=== PATIENT | female | born 1995 | race African-American/Black ===

== ENCOUNTER 2017-01-23 15:16 | Emergency (ER) | payer MEDICAID ==
[~2017-01-23] VITALS: Ht 160 cm; Wt 52.0 kg
[~2017-01-23 15:16] MED LIST: PRED-503 PO
[2017-01-23 15:18] VITALS: BP 120/76; PULSE 16; PULSE 94; RESP 15; TEMP 98.1; O2SAT 98
[2017-01-23] MEDS ORDERED: AMOX875T PO (18:24)
--- NOTE | 2017-01-23 18:24 | PD ---
HPI Chief Complaint: ENT Complaint Time Seen by Provider: 18:21 Travel History International Travel<30 days: No Contact w/Intl Traveler<30days: No Traveled to known affect area: No History of Present Illness HPI Patient comes in complaining of sore throat ongoing for 3 days. Patient describes pain as scratchy burning sensation in her throat that radiates to her ears when she swallows. Patient is been taking [id number] cold and flu medication with minimal relief of her symptoms. Denies any fevers, neck pain, headache, nausea, vomiting, chest pain, shortness of breath, abdominal pain, or diarrhea. [facility] Past Medical History Medical History: Denies Significant Hx ?: Not LMP: 01/06/17 Social History Alcohol Use: No Tobacco Use: No Substance Use: No Allergies-Medications (Allergen,Severity, Reaction): Coded Allergies: No Known Allergies (Unverified , 01/23/17) Reported Meds & Prescriptions Reported Meds & Active Scripts Active Amoxicillin 875 Mg Tab 875 Mg PO BID 10 Days Review of Systems Except as stated in HPI: all other systems reviewed are Neg Physical Exam Narrative GENERAL: Well-developed, well nourished, in no acute distress, and non-ill appearing. SKIN: Warm and dry. HEAD: Atraumatic. Normocephalic. EYES: Pupils equal and round. EOMI. No scleral icterus. No injection or drainage. ENT: No nasal bleeding or discharge. Mucous membranes pink and moist. Tympanic membranes pearly huang bilaterally. Posterior pharynx erythematous with exudate. Uvula is midline. Patient is able swallow saliva speaking in full sentences. NECK: Trachea midline. Cervical lymphadenopathy noted. Supple. No nuclear rigidity. CARDIOVASCULAR: Regular rate and rhythm. No murmur appreciated. RESPIRATORY: No accessory muscle use. No respiratory distress. Clear to auscultation. Breath sounds equal bilaterally. MUSCULOSKELETAL: No obvious deformities. No clubbing. No cyanosis. No edema. Full range of motion. NEUROLOGICAL: Awake and alert. No obvious cranial nerve deficits. Motor grossly within normal limits. Normal speech. PSYCHIATRIC: Appropriate mood and affect; insight and judgment normal. Data Data Last Documented VS Vital Signs Date Time Temp Pulse Resp B/P Pulse Ox O2 Delivery O2 Flow Rate FiO2 01/23/17 15:18 98.1 94 15 120/76 98 MDM Medical Decision Making Medical Screen Exam Complete: Yes Emergency Medical Condition: Yes Differential Diagnosis Strep pharyngitis, viral pharyngitis, upper respiratory infection, other Narrative Course Patient looks great, non-ill appearing. The patient is tolerating fluids and is well hydrated. Appears pharyngitis possibly Strep. No clinical evidence by history or evaluation to suspect meningitis and/or sepsis. There was no evidence to suggest peritonsillar abscess or retropharyngeal abscess. I discussed with the patient, diagnosis, plan of care and to follow up with the patients primary physician. The patient was given antibiotics. The patient was instructed to return if the worsens in anyway, especially if not tolerating fluids, increased pain or swelling, difficulty swallowing or breathing, or as needed. The patient agreed with plan. Patient in no obvious distress upon re-evaluation. Patient was asked if they wanted to speak to my attending, which the patient did not wish to do at this time. Any questions/concerns in reference to patient diagnosis/condition discussed and clarified prior to patient's discharge. Reinforced sheer importance of close follow up with patient's primary physician or primary care clinic. Instructed patient to return to ED immediately, if symptoms return/ worsen. Pt showed understanding of above instructions. Further instructions and recommendations were detailed in discharge paperwork. Pt ambulated without difficulty out of ED at discharge. Diagnosis Primary Impression: Pharyngitis Qualified Code: J02.9 - Pharyngitis, unspecified etiology Patient Instructions: General Instructions, Pharyngitis (ED), Strep Throat (ED) Additional Instructions: Follow-up with your primary care physician next week for reevaluation. Take all medication as prescribed. Use [id number] Tylenol and/or ibuprofen as needed for pain and/or fevers. Follow instructions on the packaging. Drink plenty of non-caffeinated and nonalcoholic fluids. Return to the emergency department if symptoms get worse. Med/Other Pt SpecificInfo: Prescription(s) given Scripts Amoxicillin 875 Mg Ded093 Mg PO BID 10 Days Ref 0 Prov:Eriberto Flanagan MD 01/23/17 Disposition: 01 DISCHARGE HOME Condition: Stable Kev Doran Jan 23, 2017 18:24
== END 2017-01-23 18:38 | disposition home or self-care (01) ==
LOC: NEPB 15:16
DX: J02.9 Acute pharyngitis, unspecified (principal)
CPT/HCPCS: 99283

== ENCOUNTER 2017-02-08 19:24 | Emergency (ER) | payer MEDICAID ==
[~2017-02-08] VITALS: Ht 160 cm; Wt 52.0 kg
[~2017-02-08 19:24] MED LIST changes: +AMOX875T PO; -PRED-503 PO
[2017-02-08 19:30] VITALS: BP 114/74; PULSE 89; RESP 16; TEMP 98.2; O2SAT 100
== END 2017-02-08 19:50 | disposition left against medical advice (07) ==
LOC: NETRI 19:24
DX: Z53.21 Procedure and treatment not carried out due to patient leaving prior to being seen by health care provider (principal)
CPT/HCPCS: 99281

== ENCOUNTER 2017-03-19 02:50 | Emergency (ER) | payer MEDICAID ==
[~2017-03-19] VITALS: Ht 160 cm; Wt 52.0 kg
[2017-03-19 02:51] VITALS: BP 122/65; PULSE 111; RESP 18; TEMP 98.8; O2SAT 100
--- NOTE | 2017-03-19 03:28 | PD ---
HPI Chief Complaint: Injury Time Seen by Provider: 03:15 Travel History International Travel<30 days: No Contact w/Intl Traveler<30days: No Traveled to known affect area: No History of Present Illness HPI The patient is a 21-year-old [place] female who presents to the emergency department for right ankle pain. The patient states she was doing cheerleading routines approximately one hour prior to arrival, when she injured her right ankle. The patient states her right ankle is swollen and she is unable to bear weight on the affected ankle. The patient states she was drinking alcohol tonight, only a small amount. Patient states the pain is located over the medial lateral aspect the right ankle, nonradiating, worse with palpation and any weightbearing activity. She denies any numbness or tingling to the right foot or ankle. She denies any history of previous orthopedic injuries to the affected area. The patient states she was in December, is no longer , but has not had a menstrual cycle since December. Patient denies any chronic medications, allergies, or previous surgeries. PFSH Past Medical History Medical History: Denies Significant Hx Tetanus Vaccination: > 5 Years Influenza Vaccination: No ?: Unknown LMP: IRREG Past Surgical History Surgical History: No Previous Surgery Social History Alcohol Use: Yes (RARE) Tobacco Use: No Substance Use: No Allergies-Medications (Allergen,Severity, Reaction): Coded Allergies: No Known Allergies (Unverified , 03/19/17) Reported Meds & Prescriptions Reported Meds & Active Scripts Active Amoxicillin 875 Mg Tab 875 Mg PO BID 10 Days Review of Systems Except as stated in HPI: all other systems reviewed are Neg HENT: No: Headaches, Neck Pain Cardiovascular: No: Chest Pain or Discomfort Respiratory: No: Shortness of Breath Gastrointestinal: No: Nausea, Vomiting, Abdominal Pain Musculoskeletal: Positive: Limited ROM, Edema, Pain Neurologic: No: Dizziness, Paresthesia, Sensory Disturbance Physical Exam Narrative GENERAL: Awake, alert, tearful 21-year-old female who appears her stated age and is in no acute respiratory distress. SKIN: Focused skin assessment warm/dry. HEAD: Atraumatic. Normocephalic. EYES: No injection or drainage. ENT: No nasal bleeding or discharge. Mucous membranes pink and moist. NECK: Trachea midline. No JVD. CARDIOVASCULAR: Regular rate and rhythm. No murmur appreciated. RESPIRATORY: No accessory muscle use. Clear to auscultation. Breath sounds equal bilaterally. GASTROINTESTINAL: Abdomen soft, non-tender, nondistended. MUSCULOSKELETAL: The right ankle is edematous with swelling noted over the medial lateral malleus and tenderness of the medial and lateral malleus. No tenderness at the base of the fourth and fifth metatarsal. No tenderness at the proximal aspect of the fibula or tibia. Patient is able to flex her right knee to 90. Patella is midline. Positive right dorsalis pedal pulse. Patient is able to wiggle the toes of the right foot. Limited range of motion with plantar flexion/dorsiflexion/inversion/eversion secondary to pain. NEUROLOGICAL: Awake and alert. No obvious cranial nerve deficits. Motor grossly within normal limits. Normal speech. Sensation is intact of the medial , dorsal, lateral aspect of the right foot. PSYCHIATRIC: Appropriate mood and affect; insight and judgment normal. Data Data Last Documented VS Vital Signs Date Time Temp Pulse Resp B/P Pulse Ox O2 Delivery O2 Flow Rate FiO2 03/19/17 03:15 Room Air 03/19/17 02:51 98.8 111 18 122/65 100 Orders Ankle, Limited (Ap&Lat) (03/19/17 ) Morphine Inj (Morphine Inj) (03/19/17 03:30) Ondansetron Inj (Zofran Inj) (03/19/17 03:30) Sodium Chlor 0.9% 1000 Ml Inj (Ns 1000 M (03/19/17 03:30) Splinting (03/19/17 ) Ketorolac Inj (Toradol Inj) (03/19/17 04:30) Ice Cuff (03/19/17 ) Fiberglass Short Leg Splint Ad (03/19/17 ) Fiberglass Sugartong Sp Ad Sl (03/19/17 ) [facility] Medical Decision Making Medical Screen Exam Complete: Yes Emergency Medical Condition: Yes Medical Record Reviewed: Yes Interpretation(s) Last Impressions Ankle X-Ray 03/19/17 0000 Signed Impressions: Service Date/Time: February 03:41 - CONCLUSION: Spiral fracture of the fibular metaphysis. Slightly displaced posterior malleolus fracture with the posterior malleolar fragment measuring 1.7 x 0.7 cm across. Eriberto Humphries MD Differential Diagnosis Differential diagnosis includes fracture, dislocation, sprain, strain, fracture with dislocation, contusion. Narrative Course The patient was administered morphine 4 mg intravenously and Zofran 4 mg intravenously with IV fluids. X-ray of the right ankle was obtained. X-ray of the right ankle reveals fracture of the fibula which is nondisplaced and a slightly displaced fracture of the posterior aspect of the tibia. I discussed the patient with Dr. Fabiano Veliz who will evaluate the patient's x-rays in the a.m. The patient had a splint applied to the right lower extremity, was administered Toradol for pain after splint placement. The patient will be kept nothing by mouth until evaluated by orthopedics. Dr. Veliz called at 5:50 AM and stated that the patient can follow-up tomorrow morning, 8 AM at [facility]. He also advises that the patient should be nonweightbearing, elevate, ice, and nothing to eat after midnight. These instructions were relayed to the patient. Diagnosis Primary Impression: Closed right ankle fracture Qualified Code: S82.891A - Closed right ankle fracture, initial encounter Referrals: Fabiano Veliz MD 1 day Follow-up tomorrow morning at 8 AM, [facility], and nothing to eat after midnight tonight. Patient Instructions: General Instructions Additional Instructions: Follow-up tomorrow morning at 8 AM, [facility], and nothing to eat after midnight. Elevate and ice leg. Nonweightbearing on the right leg. Crutches and splint as directed. Pain medications as prescribed. Med/Other Pt SpecificInfo: Prescription(s) given Scripts Hydrocodone-Acetaminophen ([place])5-325 mg Tab1 Tab PO Q6H PRN (PAIN) #15 TAB Ref 0 Prov:Kaleb Lemus MD 03/19/17 Ibuprofen 600 Mg [id number] Mg PO Q6H PRN (Pain/Inflammation) #20 TAB Ref 0 Prov:Kaleb Lemus MD 03/19/17 Disposition: 01 DISCHARGE HOME Condition: Stable Kaleb Lemus MD Mar 19, 2017 03:27
[2017-03-19] MEDS ORDERED: ONDANSETRON HCL 4 MG/2 ML VIAL IV PUSH ONE (03:30)
[2017-03-19] MEDS ORDERED: MORPHINE SULFATE 4 MG/ML INJ IV PUSH ONE (03:30)
[2017-03-19] MEDS ORDERED: SODIUM CHLOR 0.9% 1000 ML INJ 1,000 ML IV ONE (03:30)
--- NOTE | 2017-03-19 04:17 | RADRPT ---
EXAM DATE/TIME: 03/19/2017 03:41 [place] COMPARISON: No previous studies available for comparison. INDICATIONS : Right ankle pain, swelling after patient fell tonight MEDICAL HISTORY : None. SURGICAL HISTORY : None. ENCOUNTER: Initial ACUITY: 1 day PAIN SCORE: 10/10 LOCATION: Right entire ankle FINDINGS: Two view examination was performed of the right ankle. There is a nondisplaced spiral fracture of the distal fibular metaphysis. There is soft tissue swelling both medially and laterally. There is a sli ghtly displaced posterior malleolus fracture. No radiopaque foreign bodies are seen. Bony mineraliz ation is normal. CONCLUSION: Spiral fracture of the fibular metaphysis. Slightly displaced posterior malleolus fracture with the p osterior malleolar fragment measuring 1.7 x 0.7 cm across. Eriberto Humphries MD on March 19, 2017 at 4:14 Board Certified Radiologist. This report was verified electronically.
[2017-03-19] MEDS ORDERED: KETOROLAC TROMETHAMINE 30 MG/ML (IVP) VIAL IV PUSH ONE (04:30)
[2017-03-19] MEDS ORDERED: IBUP-232 PO (05:59)
[2017-03-19] MEDS ORDERED: NORC5TAB PO (05:59)
== END 2017-03-19 06:50 | disposition home or self-care (01) ==
LOC: NEPC 02:50
DX: S82.891A Other fracture of right lower leg, initial encounter for closed fracture (principal); X58.XXXA Exposure to other specified factors, initial encounter; Y93.45 Activity, cheerleading
CPT/HCPCS: 29515; 73600; 96361; 96374; 96375; 99283; E0113; J1885; J2270; J2405; J7030

== ENCOUNTER → 2017-03-20 | Day surgery (SDC) | payer MEDICAID ==
[~2017-03-20] MED LIST changes: +BUPIVACAINE HCL PF 0.75% 30 ML VIAL ONE; +IBUP-232 PO; +LACTATED RINGER'S 1000 ML INJ 1,000 ML ONE; +LIDOCAINE 1.5%/EPINEPHrine 1:200,000 PF SOLN 30 ML AMP ONE; +MIDAZOLAM HCL 2 MG/2 ML VIAL ONE; +NORC5TAB PO; +ONDANSETRON HCL 4 MG/2 ML VIAL IV PUSH ONE; +PROPOFOL 200 MG/20 ML AMP IV ONE; +ceFAZolin INJ 1,000 MG VIAL ONE
--- NOTE | 2017-03-20 17:16 | TN ---
cc: TERRY REYES DATE OF SURGERY: 03/20/2017. PREOPERATIVE DIAGNOSIS: Fracture of the right ankle, trimalleolar fracture equivalent. POSTOPERATIVE DIAGNOSIS: Fracture of the right ankle, trimalleolar fracture equivalent. OPERATIVE PROCEDURE PERFORMED: Open treatment internal fixation right ankle trimalleolar fracture with fixation of the posterior lip. SURGEON: Terry Reyes MD. ANESTHESIA: TIVA. ESTIMATED BLOOD LOSS: Minimal. INDICATIONS FOR THE PROCEDURE: This is a 21-year-old female with a displaced lateral malleolus and posterior malleolar fragment. The patient has a displaced mortise. She presents for surgical treatment. DESCRIPTION OF THE PROCEDURE IN DETAIL: The patient was brought to the operating room and anesthetized in the supine position. The right leg was scrubbed alcohol followed by Hibiclens followed by Chloraprep and draped sterilely. Antibiotics were given within a one hour time window and a time-out was done. The leg was exsanguinated. The tourniquet was inflated to 250 mmHg. A lateral incision was made and the fibula was exposed. The fracture was displaced. We were able to bring it back to a reduced position and held. We found that the mortise reduced with the fibula fixated. A clamp was placed on this and a 6-hole one-third tibial plate was fitted and applied. Two distal screws were placed using cancellous screws and three cortical screws proximally. A single lag screw was placed [id number]. The mortise was reduced anatomically. The posterior malleolar fragment was small and did not need fixation. The wound was irrigated copiously. Hemostasis was controlled. The tourniquet was let down. The deep fascia was approximated with interrupted 2-0 Vicryl suture and the skin and subcutaneous tissue with 3-0 nylon in a mattress fashion. A sterile dressing was applied. A posterior splint was applied. The patient was awakened and taken to the recovery room in satisfactory condition. MD CLOVIS Coffey/RYLIE /4:41 PM /5:10 PM
== END | disposition home or self-care (01) ==
LOC: ESDC 13:15
PROVIDERS: ATTEND Orthopaedic Surgery Orthopaedic Surgery of the Spine
DX: S82.851A Displaced trimalleolar fracture of right lower leg, initial encounter for closed fracture (principal)
CPT/HCPCS: 01480; 27823; 64450; 73610; 76000; C1713; J0690; J2250; J2405; J7120

== ENCOUNTER 2017-07-26 17:24 | Emergency (ER) | payer MEDICAID ==
[~2017-07-26 17:24] MED LIST changes: -BUPIVACAINE HCL PF 0.75% 30 ML VIAL ONE; -LACTATED RINGER'S 1000 ML INJ 1,000 ML ONE; -LIDOCAINE 1.5%/EPINEPHrine 1:200,000 PF SOLN 30 ML AMP ONE; -MIDAZOLAM HCL 2 MG/2 ML VIAL ONE; -ONDANSETRON HCL 4 MG/2 ML VIAL IV PUSH ONE; -PROPOFOL 200 MG/20 ML AMP IV ONE; -ceFAZolin INJ 1,000 MG VIAL ONE
[2017-07-26] MEDS ORDERED: PRED-503 PO (18:03)
--- NOTE | 2017-07-26 18:04 | PD ---
HPI Chief Complaint: Allergic/Adverse Reaction Time Seen by Provider: 18:02 Travel History International Travel<30 days: No Contact w/Intl Traveler<30days: No Traveled to known affect area: No History of Present Illness HPI 21-year-old female presents to the emergency Department with complaint of a rash to her lips and around her mouth after using Campho-Phenique for cold sore treatment. She has history of cold sore and she said she felt them coming on last Thursday so she brought the medication and used it. On Thursday she had a rash to her lips and around her mouth. She then used the medication again on Thursday. The rash has continued. She says it is itchy. She denies airway edema , difficulty breathing, swelling of the tongue, wheezing. Denies swelling of her lips. Denies any sores in her mouth. Denies fever, vomiting. She has applied Vaseline for symptom treatment. Symptoms are mild in severity. No known allergies. Has no other medical complaints. No other modifying factors or associated signs and symptoms. PFSH Past Medical History ?: Unknown Social History Alcohol Use: Yes (RARE) Tobacco Use: No Substance Use: No Allergies-Medications (Allergen,Severity, Reaction): Coded Allergies: No Known Allergies (Unverified , 07/26/17) Reported Meds & Prescriptions Reported Meds & Active Scripts Active Deltasone (Prednisone) 20 Mg Tab 40 Mg PO DAILY 5 Days [place] (Hydrocodone-Acetaminophen) 5-325 mg Tab 1 Tab PO Q6H PRN Ibuprofen 600 Mg Tab 600 Mg PO Q6H PRN Amoxicillin 875 Mg Tab 875 Mg PO BID 10 Days Review of Systems Except as stated in HPI: all other systems reviewed are Neg Physical Exam Narrative GENERAL: Well-nourished, well-developed black female patient, in no acute distress; afebrile, nontoxic-appearing SKIN: Warm and dry. Erythemic, pimple-like rash noted around the mouth into upper and lower lips. HEAD: Atraumatic. Normocephalic. EYES: Pupils equal and round. No scleral icterus. No injection or drainage. ENT: Mucosa pink and moist. No erythema or exudates. No uvular edema. No uvular , palatal, or tonsillar deviation. Airway patent. EARS: Bilateral pinnae and external canals appear within normal limits. Bilateral tympanic membranes without erythema, dullness or perforation. NECK: Trachea midline. No lymphadenopathy. CARDIOVASCULAR: Regular rate and rhythm. No murmur appreciated. RESPIRATORY: No accessory muscle use. Clear to auscultation. Breath sounds equal bilaterally. No retractions or tachypnea. GASTROINTESTINAL: Flat. MUSCULOSKELETAL: No obvious deformities. No clubbing. No cyanosis. No edema. NEUROLOGICAL: Awake and alert. Oriented 3. No obvious cranial nerve deficits. Motor grossly within normal limits. Normal speech. Moves all extremities. 5/5 strength to all extremities. PSYCHIATRIC: Appropriate mood and affect; insight and judgment normal. [facility] Medical Decision Making Medical Screen Exam Complete: Yes Emergency Medical Condition: Yes Medical Record Reviewed: Yes Differential Diagnosis Allergic reaction, adverse reaction, rash application site Narrative Course 21-year-old female physical exam and history of present illness consistent with a rash at the application site after using Campho-Phenique, a cold sore treatment. Patient denies airway edema, swelling of the tongue, lip edema. Patient is in no acute distress and without retractions or tachypnea. Instructed patient to stop using the Campho-Phenique. Deltasone prescribed for home. Instructed patient to take Benadryl as directed and as needed for itching /rash. Instructed patient to follow up with primary care provider. Patient verbalizes understanding and agreement with treatment plan. Patient is medically cleared and stable for discharge. Discussed reasons to return to the emergency department. Patient agrees with treatment plan. The patients vital signs are stable and the patient is stable for outpatient follow-up and treatment. Patient discharged home, stable and in no acute distress. Diagnosis Primary Impression: Rash at application site Referrals: Primary Care Physician Patient Instructions: General Allergic Reaction (ED), General Instructions Departure Forms: Tests/Procedures, Work Release Enter return to work date: Jul 27, 2017 Additional Instructions: Take oral steroids as prescribed Benadryl as directed and as needed to reduce itch Stop using Campho-Phenique on your lips Follow-up with your primary care provider Return to the emergency department immediately with worsening of symptoms Med/Other Pt SpecificInfo: Prescription(s) given Scripts Prednisone (Deltasone) 20 Mg Tab 40 MG PO DAILY for 5 Days, TAB 0 Refills Prov: Terese Coombs 07/26/17 Disposition: 01 DISCHARGE HOME Condition: Stable Terese Coombs Jul 26, 2017 18:04
[2017-07-26 18:13] VITALS: BP 116/78; PULSE 85; RESP 20; TEMP 97.8; O2SAT 99
== END 2017-07-27 07:49 | disposition home or self-care (01) ==
LOC: NEPK 17:24
DX: L25.1 Unspecified contact dermatitis due to drugs in contact with skin (principal); T49.8X5A Adverse effect of other topical agents, initial encounter
CPT/HCPCS: 99283

== ENCOUNTER 2018-05-22 22:57 | Emergency (ER) | payer MEDICAID ==
[~2018-05-22] VITALS: Ht 157.5 cm; Wt 60.0 kg
[~2018-05-22 22:57] MED LIST changes: +PRED-503 PO
[2018-05-22 23:01] VITALS: BP 113/57; PULSE 93; RESP 18; TEMP 99.9; O2SAT 100
[2018-05-22] MEDS ORDERED: PRED20 PO (23:57)
[2018-05-22] MEDS ORDERED: AMOX500C PO (23:57)
--- NOTE | 2018-05-22 23:58 | PD ---
HPI Chief Complaint: ENT Complaint Time Seen by Provider: 23:48 Travel History International Travel<30 days: No Contact w/Intl Traveler<30days: No Traveled to known affect area: No History of Present Illness HPI 22-year-old female complains of sore throat. Patient states that the symptoms started 2 days ago. Patient states that the pain is sharp pain worse with swallowing. Patient denies earache. Patient denies any fever chills. Patient denies any coughing congestion. Patient denies abdominal pain. Patient denies any nausea vomiting diarrhea. PFSH Past Medical History Medical History: Denies Significant Hx ?: Not Social History Alcohol Use: Yes (RARE) Tobacco Use: No Substance Use: No Allergies-Medications (Allergen,Severity, Reaction): Coded Allergies: No Known Allergies (Unverified Adverse Reaction, Unknown, 05/22/18) Reported Meds & Prescriptions Reported Meds & Active Scripts Active Deltasone (Prednisone) 20 Mg Tab 40 Mg PO DAILY 5 Days [place] (Hydrocodone-Acetaminophen) 5-325 mg Tab 1 Tab PO Q6H PRN Ibuprofen 600 Mg Tab 600 Mg PO Q6H PRN Amoxicillin 875 Mg Tab 875 Mg PO BID 10 Days Review of Systems General / Constitutional: No: Fever Eyes: No: Visual changes HENT: Positive: Sore Throat, No: Headaches Cardiovascular: No: Chest Pain or Discomfort Respiratory: No: Shortness of Breath Gastrointestinal: No: Abdominal Pain Genitourinary: No: Dysuria Musculoskeletal: No: Pain Skin: No Rash Neurologic: No: Weakness Psychiatric: No: Depression Endocrine: No: Polydipsia Hematologic/Lymphatic: No: Easy Bruising Physical Exam Narrative GENERAL: Well-nourished, well-developed patient. SKIN: Focused skin assessment warm/dry. HEAD: Normocephalic. EYES: No scleral icterus. No injection or drainage. TM: Clear. Throat: Erythematous with mild edema. No exudate. NECK: Supple, trachea midline. No JVD. Patient has mild anterior cervical lymphadenopathy. No meningismus CARDIOVASCULAR: Regular rate and rhythm without murmurs, gallops, or rubs. RESPIRATORY: Breath sounds equal bilaterally. No accessory muscle use. GASTROINTESTINAL: Abdomen soft, non-tender, nondistended. MUSCULOSKELETAL: No cyanosis, or edema. BACK: Nontender without obvious deformity. No CVA tenderness. Data Data Last Documented VS Vital Signs Date Time Temp Pulse Resp B/P (MAP) Pulse Ox O2 Delivery O2 Flow Rate FiO2 05/22/18 23:01 99.9 93 18 113/57 (75) 100 Orders Orders Prednisone (Deltasone) (05/23/18 00:00) Amoxicillin (Trimox) (05/23/18 00:00) MDM Medical Decision Making Medical Screen Exam Complete: Yes Emergency Medical Condition: Yes Differential Diagnosis Differential diagnosis including strep versus viral pharyngitis. Narrative Course 22-year-old female with sore throat. Amoxicillin 500 mg p.o. given. Prednisone 20 mg p.o. given. Diagnosis Primary Impression: Pharyngitis Qualified Codes: J02.9 - Acute pharyngitis, unspecified Patient Instructions: General Instructions Additional Instructions: Amoxicillin and prednisone as directed. Tylenol for fever. Follow-up with personal physician. Return if worse. Med/Other Pt SpecificInfo: Prescription(s) given Scripts Prednisone (Prednisone) 20 Mg Tab 20 MG PO BID, #6 TAB 0 Refills Prov: Hugo De Luna MD 05/22/18 Amoxicillin (Amoxicillin) 500 Mg Cap 500 MG PO TID for Infection, #30 CAP 0 Refills Prov: Hugo De Luna MD 05/22/18 Disposition: 01 DISCHARGE HOME Condition: Stable Hugo De Luna MD May 22, 2018 23:58
[2018-05-23] MEDS ORDERED: predniSONE 20 MG TAB PO ONE
[2018-05-23] MEDS ORDERED: AMOXICILLIN (TRIHYDRATE) 500 MG CAP PO ONE
== END 2018-05-23 00:11 | disposition home or self-care (01) ==
LOC: NEPD 22:57
DX: J02.9 Acute pharyngitis, unspecified (principal)
CPT/HCPCS: 99283; J7512